=== PATIENT | male | born 1985 | race Two or more races ===

== ENCOUNTER 2018-05-09 20:33 | Emergency (ER) | payer OTHER ==
[~2018-05-09] VITALS: Ht 188 cm; Wt 93.0 kg
[2018-05-09 20:45] VITALS: BP 130/66
[2018-05-09] MEDS ORDERED: ACYCLOVIR400 MG ORAL (20:45)
--- NOTE | 2018-05-09 21:00 | NUR ---
ED Nurse Note: pt walked into ed c/o intermitten blurry vision and dryness. pt states he had viral meningitis about three wks ago and took acyclovir but stopped taking and didn't finish the medication regimen because he was feeling better but blurry vision came back shortly after. Pt AA&ox4, gcs=15, skin warm and dry, denies stiff neck, stone, or fever. evans conjunctiva white no s/s infection noted nor redness, no tears or drainage at this time, will cont monitor.
[2018-05-09] MEDS ORDERED: CILOXAN 0.3% O1 DROP BOTH EYES (21:09)
--- NOTE | 2018-05-09 21:09 | Emergency Room Report ---
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 He was taking her psych severe. Since he finished acyclovir he's been complaining of some blurry vision and double vision. No fever chills but no nausea no vomiting. No discharge. Itching sensation. Denies any other complaint. Allergies: Coded Allergies: SULFAMETHOXAZOLE (Verified Allergy, Unknown, 05/09/18) TRIMETHOPRIM (Verified Allergy, Unknown, 05/09/18) Patient History Past Medical History: see triage record, old chart reviewed Past Surgical History: none Pertinent Family History: none Social History: Denies: smoking Immunizations: other Reviewed Nursing Documentation: PMH: Agreed; PSxH: Agreed Nursing Documentation-PMH Hx Neurological Problems: Yes - viral meningitis Review of Systems Eye: Reports: blurred vision, double vision; Denies: eye pain ENT: Denies: ear pain, nose congestion, throat swelling Respiratory: Denies: cough, shortness of breath Cardiovascular: Denies: chest pain, palpitations Gastrointestinal: Denies: abdominal pain, diarrhea, nausea, vomiting Musculoskeletal: Denies: back pain, joint pain Skin: Denies: rash Neurological: Denies: headache, numbness Endocrine: Denies: increased thirst, increased urine Hematologic/Lymphatic: Denies: easy bruising All Other Systems: negative except mentioned in HPI Physical Exam Vital Signs Date Time Temp Pulse Resp B/P (MAP) Pulse Ox O2 Delivery O2 Flow Rate FiO2 05/09/18 20:40 97.9 105 16 130/66 96 Room Air vitals normal Sp02 EP Interpretation: reviewed, normal General Appearance: well appearing, no apparent distress, alert Head: normocephalic, atraumatic Eyes: bilateral eye PERRL, bilateral eye EOMI, bilateral eye Fundiscopic - Funduscopic exam show sharp disks. No dendritic lesion. No papilledema. ENT: hearing grossly normal, normal pharynx Neck: full range of motion, supple, no meningismus Respiratory: chest non-tender, lungs clear, normal breath sounds Cardiovascular #1: regular rate, rhythm, no murmur Gastrointestinal: normal bowel sounds, non tender, no mass, no organomegaly, no bruit, non-distended Musculoskeletal: back normal, gait/station normal, normal range of motion Psychiatric: mood/affect normal Skin: warm/dry Medical Decision Making Diagnostic Impression: Primary Impression: Blurred vision, bilateral ER Course Patient with blurred vision intermittently. I see no evidence of herpes keratitis. No evidence of meningitis. Visual acuity is normal. We'll discharge home with ophthalmology's last search strategist follow-up for recheck. Return if worse. Last Vital Signs Date Time Temp Pulse Resp B/P (MAP) Pulse Ox O2 Delivery O2 Flow Rate FiO2 05/09/18 20:40 97.9 105 16 130/66 96 Room Air Status: improved Disposition: HOME, SELF-CARE Condition: Stable Scripts Ciprofloxacin (Ciprofloxacin HCl) 2.5 Ml Drops 2 DROP BOTH EYES Q4H, #2 ML Prov: Stevie Sargent MD 05/09/18 Additional Instructions: Follow-up with eye doctor within a week. Return if symptom worsen. Stevie Sargent MD May 09, 2018 21:09
[2018-05-09 21:11] VITALS: BP 130/64
--- NOTE | 2018-05-09 21:11 | NUR ---
ED Nurse Note: pt discharge instruction provided w/ prescription, pt wristband removed, pt education done via discussion and handout, pt advised to follow up with pcp or return to ed if s/s worsen or new s/s develop, pt verbalized understanding and agrees with plan, all belongings left with pt.
== END 2018-05-09 21:11 | disposition home or self-care (01) ==
LOC: EMR 21:10
DX: H53.8 Other visual disturbances (principal); Z86.61 Personal history of infections of the central nervous system; Z88.0 Allergy status to penicillin; Z88.2 Allergy status to sulfonamides
CPT/HCPCS: 99282

== ENCOUNTER 2018-05-12 22:42 | Emergency (ER) | payer OTHER ==
[~2018-05-12] VITALS: Ht 188 cm; Wt 93.0 kg
[~2018-05-12 22:42] MED LIST: ACYCLOVIR400 MG ORAL; CILOXAN 0.3% O1 DROP BOTH EYES
--- NOTE | 2018-05-12 23:04 | NUR ---
ER Nurse Note: Pt came from home c/o abdominal pain and dirrhea for one day. Pt stated he was consitpated for one day and took ducolax supp, and had bloody, painful dirrhea [id number] after. Kylie 9/10 pain. Bowel sounds heard in all quadrants. No BM currently. Pt a&ox4, VSS, no signs of distress. ERMD at pt side; [facility].
[2018-05-12 23:25] VITALS: BP 129/74
[2018-05-12 23:25] LABS: BASOPHILS % (AUTO) 1.1 % (0.0-2.0); EOSINOPHILS % (AUTO) 0.7 % (0.0-3.0); HEMATOCRIT 44.2 % (42.0-52.0); HEMOGLOBIN 15.7 G/DL (14.2-18.0); MEAN CORPUSCULAR VOLUME 89 FL (80-99); MONOCYTES % (AUTO) 6.6 % (1.0-10.0); NEUTROPHILS % (AUTO) 63.6 % (45.0-75.0); PLATELET COUNT 190 K/UL (150-450); RED BLOOD COUNT 4.96 M/UL (4.70-6.10); RED CELL DISTRIBUTION WIDTH 11.1 % (11.6-14.8); WHITE BLOOD COUNT 7.8 K/UL (4.8-10.8)
[2018-05-12 23:37] LABS: ANION GAP 11 mmol/L (5-15); BLOOD UREA NITROGEN 14 mg/dL (7-18); CALCIUM 8.9 MG/DL (8.5-10.1); CARBON DIOXIDE 24 MMOL/L (21-32); CHLORIDE 104 MMOL/L (98-107); CREATININE 1.2 MG/DL (0.55-1.30); POTASSIUM 4.1 MMOL/L (3.5-5.1); SODIUM 139 MMOL/L (136-145)
[2018-05-12 23:41] LABS: ALANINE AMINOTRANSFERASE 42 U/L (12-78); ALBUMIN 4.1 G/DL (3.4-5.0); ALBUMIN/GLOBULIN RATIO 1.3 (1.0-2.7); ALKALINE PHOSPHATASE 95 U/L (46-116); BILIRUBIN,TOTAL 0.4 MG/DL (0.2-1.0)
[2018-05-13 00:15] LABS: ASPARTATE AMINO TRANSFERASE 29 U/L (15-37)
[2018-05-13] MEDS ORDERED: Metoclopramide 10mg/2ml Inj IVP ONE (00:15)
[2018-05-13] MEDS ORDERED: DiphenhydrAMINE 50mg/ml Inj IVP ONE (00:15)
[2018-05-13] MEDS ORDERED: Ketorolac 30mg Inj IV ONE (00:15)
--- NOTE | 2018-05-13 00:26 | Emergency Room Report ---
History of Present Illness General Chief Complaint: Abdominal Pain Source: Patient Present Illness HPI Patient presents with lower abdominal cramping and diarrhea since yesterday reports that he was somewhat constipated and therefore took a suppository After that he has been having persistent diarrhea associated with the cramps denies any fevers or chills denies any chest pain Denies any vomiting he had some mild nausea initially Patient also reports recent hospitalization for viral meningitis On review patient was also at this hospital recently for blurring of vision Denies any recent travel patient also reported blood in his stool Allergies: Coded Allergies: SULFAMETHOXAZOLE (Verified Allergy, Unknown, 05/12/18) TRIMETHOPRIM (Verified Allergy, Unknown, 05/12/18) Patient History Past Medical History: see triage record Pertinent Family History: none Reviewed Nursing Documentation: PMH: Agreed; PSxH: Agreed Nursing Documentation-PMH Hx Neurological Problems: Yes - viral meningitis Review of Systems All Other Systems: negative except mentioned in HPI Physical Exam Vital Signs Date Time Temp Pulse Resp B/P (MAP) Pulse Ox O2 Delivery O2 Flow Rate FiO2 05/12/18 22:46 98.2 75 18 129/74 97 Room Air Sp02 EP Interpretation: reviewed, normal General Appearance: well appearing, no apparent distress Head: normocephalic, atraumatic Eyes: bilateral eye PERRL, bilateral eye EOMI ENT: hearing grossly normal, normal pharynx, TMs + canals normal, uvula midline Neck: full range of motion, supple, no meningismus, no bony tend Respiratory: lungs clear, normal breath sounds, no rhonchi, no respiratory distress, no retraction, no accessory muscle use Cardiovascular #1: normal peripheral pulses, regular rate, rhythm, no edema, no gallop, no JVD, no murmur Gastrointestinal: normal bowel sounds, non tender, soft, no mass, no organomegaly, non-distended, no guarding, no hernia, no pulsatile mass, no rebound Genitourinary: no CVA tenderness Musculoskeletal: normal inspection Neurologic: oriented x3, responsive, dump attendant III-XII nml as tested, motor strength/ tone normal, sensory intact Psychiatric: mood/affect normal Skin: normal color, no rash, warm/dry, palpation normal Lymphatic: normal inspection, no adenopathy Medical Decision Making Diagnostic Impression: Primary Impression: Diarrhea Additional Impression: Abdominal pain ER Course With the history exam and presentation, multiple differentials considered, including but not limited to appendicitis, gastritis, cholecystitis, diverticulitis Patient's discomfort however it appears to be mainly diarrhea abdominal exam is fairly soft and benign and Patient complains minimally of abdominal cramping Blood work is at baseline levels patient has done better throughout his stay my suspicion for appendicitis is low and patient will have initial conservative outpatient trial And return with any changes Labs Test 05/12/18 23:15 White Blood Count 7.8 K/UL (4.8-10.8) Red Blood Count 4.96 M/UL (4.70-6.10) Hemoglobin 15.7 G/DL (14.2-18.0) Hematocrit 44.2 % (42.0-52.0) Mean Corpuscular Volume 89 FL (80-99) Mean Corpuscular Hemoglobin 31.6 PG (27.0-31.0) Mean Corpuscular Hemoglobin Concent 35.5 G/DL (32.0-36.0) Red Cell Distribution Width 11.1 % (11.6-14.8) Platelet Count 190 K/UL (150-450) Mean Platelet Volume 7.9 FL (6.5-10.1) Neutrophils (%) (Auto) 63.6 % (45.0-75.0) Lymphocytes (%) (Auto) 28.0 % (20.0-45.0) Monocytes (%) (Auto) 6.6 % (1.0-10.0) Eosinophils (%) (Auto) 0.7 % (0.0-3.0) Basophils (%) (Auto) 1.1 % (0.0-2.0) Sodium Level 139 MMOL/L (136-145) Potassium Level 4.1 MMOL/L (3.5-5.1) Chloride Level 104 MMOL/L (98-107) Carbon Dioxide Level 24 MMOL/L (21-32) Anion Gap 11 mmol/L (5-15) Blood Urea Nitrogen 14 mg/dL (7-18) Creatinine 1.2 MG/DL (0.55-1.30) Estimat Glomerular Filtration Rate > 60 mL/min (>60) Glucose Level 131 MG/DL (74-106) Calcium Level 8.9 MG/DL (8.5-10.1) Total Bilirubin 0.4 MG/DL (0.2-1.0) Aspartate Amino Transf (AST/SGOT) 29 U/L (15-37) Alanine Aminotransferase (ALT/SGPT) 42 U/L (12-78) Alkaline Phosphatase 95 U/L (46-116) Total Protein 7.2 G/DL (6.4-8.2) Albumin 4.1 G/DL (3.4-5.0) Globulin 3.1 g/dL Albumin/Globulin Ratio 1.3 (1.0-2.7) Lipase 126 U/L (73-393) Last Vital Signs Date Time Temp Pulse Resp B/P (MAP) Pulse Ox O2 Delivery O2 Flow Rate FiO2 05/12/18 23:25 98.2 66 15 129/74 97 Room Air Status: improved Disposition: HOME, SELF-CARE Condition: Improved Scripts Metoclopramide Hcl* (REGLAN*) 10 Mg Tablet 10 MG ORAL BID, #12 TAB Prov: Kofi Moya DO 05/13/18 Referrals: [facility],REFERRING (PCP) Additional Instructions: Patient is provided with the discharge instructions notified to follow up with primary doctor in the next 2-3 days otherwise return to the er with any worsening symptoms. Please note that this report is being documented using Liquid Light technology. This can lead to erroneous entry secondary to incorrect interpretation by the dictating instrument. Kofi Moya DO May 13, 2018 00:26
[2018-05-13 01:10] VITALS: BP 118/76
--- NOTE | 2018-05-13 01:30 | NUR ---
ER Nurse Note: Pt calm, cooperative, no signs of distress. All orders completed per ERMD orders. Pt denies pain, n/v/d after medication received. Awaiting discharge ordrers. All safety measures met; will continue to [facility]ior.
[2018-05-13] MEDS ORDERED: REGLAN10 MG ORAL (02:36)
[2018-05-13 04:00] VITALS: BP 130/78
--- NOTE | 2018-05-13 04:00 | NUR ---
ER Nurse Note: Pt seen, treated, medically cleared for discharge by ERMD. Discharge instructions and prescriptons given with repeat verbalization by pt. Instructed pt to follow up with primary care physican within one week. Pt a&ox4, VSS, no signs of distress. No signs of n/v/d on shfit. ID band removed; IV removed, site clean and bandaged. All safety measures met; left with all belongings with steady gait via own transporation with family member.
== END 2018-05-13 04:00 | disposition home or self-care (01) ==
LOC: EMR 23:03
DX: R10.30 Lower abdominal pain, unspecified (principal); R19.7 Diarrhea, unspecified; Z88.2 Allergy status to sulfonamides
CPT/HCPCS: 36415; 80053; 83690; 85025; 96361; 96374; 96375; 99284; J1200; J1885; J2765

== ENCOUNTER 2019-04-04 14:43 | Emergency (ER) | payer OTHER ==
[~2019-04-04] VITALS: Ht 172.7 cm; Wt 81.6 kg
[~2019-04-04 14:43] MED LIST changes: +REGLAN10 MG ORAL
--- NOTE | 2019-04-04 14:43 | NUR ---
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 Patient c/o vomiting x 4. Patient awake, alert, oriented x 4. Regular, unlabored breathing noted. Patient appears anxious. No hive or rash noted. Placed patient on monitoring coordinator.
[2019-04-04 14:50] VITALS: BP 137/86
[2019-04-04] MEDS ORDERED: DiphenhydrAMINE 50mg/ml Inj ONE (14:50)
[2019-04-04] MEDS ORDERED: Solu-MEDROL 125mg Inj ONE (14:50)
[2019-04-04] MEDS ORDERED: DiphenhydrAMINE 50mg/ml Inj IVP ONE (15:00)
[2019-04-04] MEDS ORDERED: Solu-MEDROL 125mg Inj IVP ONE (15:00)
[2019-04-04] MEDS: Ketorolac 30mg Inj IV ONE ×2 (15:05→15:19)
[2019-04-04 15:44] LABS: BASOPHILS % (AUTO) 0.3 % (0.0-2.0); EOSINOPHILS % (AUTO) 0.4 % (0.0-3.0); HEMATOCRIT 53.1 % (42.0-52.0); LYMPHOCYTES % (AUTO) 16.2 % (20.0-45.0); MEAN CORPUSCULAR VOLUME 87 FL (80-99); MONOCYTES % (AUTO) 4.8 % (1.0-10.0); NEUTROPHILS % (AUTO) 78.3 % (45.0-75.0); PLATELET COUNT 251 K/UL (150-450); RED CELL DISTRIBUTION WIDTH 10.1 % (11.6-14.8); WHITE BLOOD COUNT 10.7 K/UL (4.8-10.8)
[2019-04-04 15:52] LABS: HEMOGLOBIN 18.5 G/DL (14.2-18.0)
[2019-04-04 15:56] LABS: ANION GAP 14 mmol/L (5-15); BLOOD UREA NITROGEN 19 mg/dL (7-18); CALCIUM 10.1 MG/DL (8.5-10.1); CARBON DIOXIDE 22 MMOL/L (21-32); CHLORIDE 103 MMOL/L (98-107); CREATININE 1.3 MG/DL (0.55-1.30); POTASSIUM 4.1 MMOL/L (3.5-5.1); SODIUM 139 MMOL/L (136-145)
[2019-04-04 16:01] LABS: ALANINE AMINOTRANSFERASE 73 U/L (12-78); ALBUMIN 4.7 G/DL (3.4-5.0); ALBUMIN/GLOBULIN RATIO 1.3 (1.0-2.7); ALKALINE PHOSPHATASE 97 U/L (46-116); ASPARTATE AMINO TRANSFERASE 29 U/L (15-37); BILIRUBIN,TOTAL 0.8 MG/DL (0.2-1.0)
[2019-04-04] MEDS ORDERED: DIPHENHYDRAMINE25 M1 ORAL (16:31)
[2019-04-04] MEDS ORDERED: PREDNISONE20 MG ORAL (16:31)
[2019-04-04] MEDS ORDERED: ONDANSETRON ODT4 MG BC (16:31)
[2019-04-04] MEDS ORDERED: RANITIDINE HCL150 MG ORAL (16:31)
[2019-04-04 16:54] VITALS: BP 132/96
--- NOTE | 2019-04-04 16:55 | NUR ---
ER DISCHARGE NOTE: Patient is cleared to be discharged per ERMD Dr. Nation, pt is aox4, on room air, with stable vital signs. pt was given dc and prescription instructions, pt was able to verbalize understanding, pt id band and iv site removed without complications. pt is able to ambulate with steady gait. pt took all belongings. Advised patient not to drive due to patient recieved IV Benadryl. Patient stated he was going to call his father for a ride.
--- NOTE | 2019-04-04 17:15 | Emergency Room Report ---
History of Present Illness General Chief Complaint: Allergic Reaction Source: Patient Present Illness HPI 33-year-old male presents ED for evaluation. Complaining of abdominal pain and vomiting. Started last night after consuming food containing eggplant. States he has an allergy to eggplant but was not aware. Denies any tongue swelling or throat swelling. Denies shortness of breath. Denies hives. Notes generalized body aches. 9 out of 10, dull, nonradiating. No other aggravating relieving factors. Denies any other associated symptoms Allergies: Coded Allergies: SULFAMETHOXAZOLE (Verified Allergy, Unknown, 05/12/18) TRIMETHOPRIM (Verified Allergy, Unknown, 05/12/18) Patient History Past Medical History: none, psych hx Past Surgical History: none Pertinent Family History: none Social History: Denies: smoking, alcohol use, drug use Immunizations: UTD Reviewed Nursing Documentation: PMH: Agreed; PSxH: Agreed Nursing Documentation-PMH Hx Neurological Problems: Yes - viral meningitis Review of Systems All Other Systems: negative except mentioned in HPI Physical Exam Vital Signs Date Time Temp Pulse Resp B/P (MAP) Pulse Ox O2 Delivery O2 Flow Rate FiO2 04/04/19 14:43 97.5 99 20 134/76 (95) 99 Room Air Sp02 EP Interpretation: reviewed, normal General Appearance: alert, GCS 15, non-toxic, moderate distress Head: normocephalic, atraumatic Eyes: bilateral eye normal inspection, bilateral eye PERRL ENT: hearing grossly normal, normal pharynx, no angioedema, normal voice Neck: full range of motion, supple/symm/no masses Respiratory: chest non-tender, lungs clear, normal breath sounds, speaking full sentences Cardiovascular #1: regular rate, rhythm, no edema Cardiovascular #2: 2+ carotid (R), 2+ carotid (L), 2+ radial (R), 2+ radial (L) , 2+ dorsalis pedis (R), 2+ dorsalis pedis (L) Gastrointestinal: normal bowel sounds, non tender, soft, non-distended, no guarding, no rebound Rectal: deferred Genitourinary: normal inspection, no CVA tenderness Musculoskeletal: back normal, normal range of motion, gait/station normal, non- tender Neurologic: alert, motor strength/tone normal, oriented x3, sensory intact, responsive, speech normal Psychiatric: judgement/insight normal, memory normal, mood/affect normal, no suicidal/homicidal ideation Reflexes: 3+ bicep (R), 3+ bicep (L), 3+ tricep (R), 3+ tricep (L), 3+ knee (R) , 3+ knee (L) Skin: no rash Lymphatic: no adenopathy Medical Decision Making Diagnostic Impression: Primary Impression: Allergic reaction Qualified Codes: T78.40XA - Allergy, unspecified, initial encounter ER Course Hospital Course 33 yo M presents with vomiting, generalized pain after eating eggplant. known allergy to eggplant Differential diagnoses include: allergic reaction, angioedema, gastritis Clinical course Patient placed on stretcher. nurse monitoring. After initial history and physical, I ordered Solu-Medrol, Benadryl, zofran, toradol, Zantac, IV fluids Labs reviewed - electrolytes okay, no leukocytosis, Upon reassessment patient states he feels better. discussed findings with patient. Patient observed on monitor. Safe for discharge for close outpatient follow-up. States he has a PMD i. I feel this is a highly complex case requiring extensive working including EKG/Rhythm strip, Xray/CT/US, Blood/urine lab work, repeat exams while in ED, and administration of strong opiates/narcotics for pain control, admission to hospital or close patient follow up. Diagnosis - allergic reaction Stable and discharged to home with prescriptions for Zantac, zofran, prednisone , Benadryl. Followup with PMD. Return to ED if symptoms recur or worsen Labs Test 04/04/19 14:55 White Blood Count 10.7 K/UL (4.8-10.8) Red Blood Count 6.10 M/UL (4.70-6.10) Hemoglobin 18.5 G/DL (14.2-18.0) Hematocrit 53.1 % (42.0-52.0) Mean Corpuscular Volume 87 FL (80-99) Mean Corpuscular Hemoglobin 30.4 PG (27.0-31.0) Mean Corpuscular Hemoglobin Concent 34.9 G/DL (32.0-36.0) Red Cell Distribution Width 10.1 % (11.6-14.8) Platelet Count 251 K/UL (150-450) Mean Platelet Volume 6.9 FL (6.5-10.1) Neutrophils (%) (Auto) 78.3 % (45.0-75.0) Lymphocytes (%) (Auto) 16.2 % (20.0-45.0) Monocytes (%) (Auto) 4.8 % (1.0-10.0) Eosinophils (%) (Auto) 0.4 % (0.0-3.0) Basophils (%) (Auto) 0.3 % (0.0-2.0) Sodium Level 139 MMOL/L (136-145) Potassium Level 4.1 MMOL/L (3.5-5.1) Chloride Level 103 MMOL/L (98-107) Carbon Dioxide Level 22 MMOL/L (21-32) Anion Gap 14 mmol/L (5-15) Blood Urea Nitrogen 19 mg/dL (7-18) Creatinine 1.3 MG/DL (0.55-1.30) Estimat Glomerular Filtration Rate > 60 mL/min (>60) Glucose Level 113 MG/DL (74-106) Calcium Level 10.1 MG/DL (8.5-10.1) Total Bilirubin 0.8 MG/DL (0.2-1.0) Aspartate Amino Transf (AST/SGOT) 29 U/L (15-37) Alanine Aminotransferase (ALT/SGPT) 73 U/L (12-78) Alkaline Phosphatase 97 U/L (46-116) Total Protein 8.3 G/DL (6.4-8.2) Albumin 4.7 G/DL (3.4-5.0) Globulin 3.6 g/dL Albumin/Globulin Ratio 1.3 (1.0-2.7) Lipase 134 U/L (73-393) Last Vital Signs Date Time Temp Pulse Resp B/P (MAP) Pulse Ox O2 Delivery O2 Flow Rate FiO2 04/04/19 16:54 98.3 86 18 132/96 98 Room Air Status: improved Disposition: HOME, SELF-CARE Condition: Stable Scripts Prednisone* (PREDNISONE*) 20 Mg Tablet 40 MG ORAL DAILY for 5 Days, #10 TAB Prov: Faheem Nation MD 04/04/19 Diphenhydramine Hcl* (DIPHENHYDRAMINE HCL*) 25 Mg Capsule 25 MG ORAL Q6H PRN for Itching for 5 Days, #30 CAP 0 Refills Prov: Faheem Nation MD 04/04/19 Ondansetron Odt* (ZOFRAN ODT*) 4 Mg Tab.rapdis 4 MG BC EVERY 6 HOURS PRN for Nausea & Vomiting, #20 TAB 0 Refills Prov: Faheem Nation MD 04/04/19 Ranitidine Hcl* (ZANTAC*) 150 Mg Tablet 150 MG ORAL TWICE A DAY, #30 TAB Prov: Faheem Nation MD 04/04/19 Referrals: NON PHYSICIAN (PCP) Patient Instructions: Food Allergy, [id number] Faheem Nation MD Apr 04, 2019 17:15
== END 2019-04-04 16:54 | disposition home or self-care (01) ==
LOC: EMR 15:03
DX: T78.40XA Allergy, unspecified, initial encounter (principal); X58.XXXA Exposure to other specified factors, initial encounter; Y92.9 Unspecified place or not applicable; Z88.2 Allergy status to sulfonamides; Z88.8 Allergy status to other drugs, medicaments and biological substances; Z91.018 Allergy to other foods; Z86.61 Personal history of infections of the central nervous system
CPT/HCPCS: 36415; 80053; 83690; 85025; 96361; 96374; 96375; J1200; J2405; J2930; J7030; S0028; Z7502; 99284

== ENCOUNTER 2019-04-05 02:28 | Emergency (ER) | payer OTHER ==
[~2019-04-05] VITALS: Ht 188 cm; Wt 94.8 kg
[~2019-04-05 02:28] MED LIST changes: +DIPHENHYDRAMINE25 M1 ORAL; +ONDANSETRON ODT4 MG BC; +PREDNISONE20 MG ORAL; +RANITIDINE HCL150 MG ORAL
[2019-04-05 02:36] VITALS: BP 130/70
--- NOTE | 2019-04-05 02:36 | NUR ---
ED Nurse Note: Patient walked in to ER c/o lower abdominal pain, nausea and feeling of throwing up since last night after eating dinner. Patient was seen here yesterday 04/04/19 due to same symptoms. As per patient, he took all the medications that was prescribed to him. No episodes of vomiting at this time. Afebrile. Not in any distress. VSS.
--- NOTE | 2019-04-05 02:40 | NUR ---
ED Nurse Note: ERMD at bedside.
--- NOTE | 2019-04-05 03:19 | Emergency Room Report ---
History of Present Illness General Chief Complaint: Nausea Source: Patient Present Illness HPI 33-year-old male presents to emergency room with nausea. Patient reports that he was seen earlier in the emergency room for allergic reaction was given multiple medications. He reported taking all of those medications at 1 time 1 hour prior to arrival. He had the sensation of vomiting but was unable to. Of note patient vomited 4 times earlier while he was having his allergic reaction to eggplant. Patient's only complaint at this time is persistent nausea and vomiting abdominal. Patient denies any diarrhea, vomiting, constipation, rash, difficulty breathing, throat or tongue swelling. Allergies: Coded Allergies: SULFAMETHOXAZOLE (Verified Allergy, Unknown, 05/12/18) TRIMETHOPRIM (Verified Allergy, Unknown, 05/12/18) Nursing Documentation-[facility] Past Medical History: No History, Except For Hx Cardiac Problems: No Hx Hypertension: No Hx Pacemaker: No Hx Asthma: No Hx COPD: No Hx Diabetes: No Hx Dialysis: No History Of Psychiatric Problem: No Hx Neurological Problems: Yes - viral meningitis Hx Cerebrovascular Accident: No Hx Seizures: No Review of Systems Constitutional: Denies: chills, fever Respiratory: Denies: cough, shortness of breath Cardiovascular: Denies: chest pain, palpitations Gastrointestinal: Denies: diarrhea, vomiting Genitourinary: Denies: hematuria, pain Musculoskeletal: Denies: joint swelling Skin: Denies: rash, lesions Neurological: Denies: headache, dizziness Physical Exam Vital Signs Date Time Temp Pulse Resp B/P (MAP) Pulse Ox O2 Delivery O2 Flow Rate FiO2 04/05/19 02:30 98.1 83 19 130/70 (90) 99 Room Air Sp02 EP Interpretation: reviewed General Appearance: well appearing, no apparent distress, non-toxic Head: normocephalic, atraumatic Eyes: bilateral eye normal inspection ENT: hearing grossly normal, EOM grossly intact, moist mucus membranes Neck: supple Respiratory: lungs clear, normal breath sounds, no respiratory distress, speaking full sentences Cardiovascular #1: regular rate, rhythm, normal capillary refill Cardiovascular #2: 2+ radial (R), 2+ radial (L) Gastrointestinal: soft, non-distended Rectal: deferred Musculoskeletal: moves extm spontaneously, no lower extremity edema Neurologic: grossly normal Psychiatric: mood/affect normal Skin: warm/dry, normal turgor Medical Decision Making Diagnostic Impression: Primary Impression: Nausea in adult patient ER Course 33-year-old male presents with nausea. Status post allergic reaction and taking multiple medications. Patient denies any respiratory complaints. No signs of distress. Patient has already taken Zofran. We will continue to observe and p.o. challenge with oral fluids Reevaluation Time: 05:03 Last Vital Signs Date Time Temp Pulse Resp B/P (MAP) Pulse Ox O2 Delivery O2 Flow Rate FiO2 04/05/19 02:36 98.1 83 19 130/70 99 Room Air Status: improved Reevaluation Impression Patient observed in the emergency room for 2 hours. No signs of vomiting. Patient's nausea improved with oral liquids. Patient discharged with follow-up with primary care doctor. Recommended to take medications one at a time and with food. Disposition: HOME, SELF-CARE Condition: Stable Patient Instructions: Nausea, Adult Additional Instructions: Please follow-up with your primary care doctor in 2 to 3 days for reevaluation. Please follow instructions on prior discharge paperwork. Bertrand Gomes M.D. Apr 05, 2019 03:18
[2019-04-05 05:17] VITALS: BP 128/69
--- NOTE | 2019-04-05 05:17 | NUR ---
ED Nurse Note: Pt cleared by ERMD for discharge. DC instructions was given and explained to pt and verbalized understanding of teachings. All medical deviecs such as ID band removed. Pt is AAO x4, ambulatory and left with all personal belongings.
== END 2019-04-05 05:15 | disposition home or self-care (01) ==
LOC: EMR 03:00
DX: R11.0 Nausea (principal); Z88.2 Allergy status to sulfonamides; Z88.1 Allergy status to other antibiotic agents
CPT/HCPCS: 99282

== ENCOUNTER 2019-04-24 00:04 | Emergency (ER) | payer OTHER ==
[~2019-04-24] VITALS: Ht 188 cm; Wt 95.3 kg
[~2019-04-24 00:04] MED LIST changes: +TAMIFLU75 MG ORAL
[2019-04-24 02:50] VITALS: BP 128/77
[2019-04-24] MEDS ORDERED: Ketorolac 30mg Inj IV ONE ×2 (03:00→04:45)
[2019-04-24 03:09] LABS: BASOPHILS % (AUTO) 0.8 % (0.0-2.0); EOSINOPHILS % (AUTO) 1.4 % (0.0-3.0); HEMATOCRIT 43.7 % (42.0-52.0); HEMOGLOBIN 15.5 G/DL (14.2-18.0); MEAN CORPUSCULAR VOLUME 89 FL (80-99); MONOCYTES % (AUTO) 7.3 % (1.0-10.0); NEUTROPHILS % (AUTO) 55.5 % (45.0-75.0); PLATELET COUNT 189 K/UL (150-450); RED BLOOD COUNT 4.93 M/UL (4.70-6.10); RED CELL DISTRIBUTION WIDTH 10.6 % (11.6-14.8); WHITE BLOOD COUNT 6.7 K/UL (4.8-10.8)
[2019-04-24 03:17] LABS: ANION GAP 10 mmol/L (5-15); BLOOD UREA NITROGEN 15 mg/dL (7-18); CALCIUM 9.1 MG/DL (8.5-10.1); CARBON DIOXIDE 26 MMOL/L (21-32); CHLORIDE 106 MMOL/L (98-107); CREATININE 1.1 MG/DL (0.55-1.30); POTASSIUM 4.2 MMOL/L (3.5-5.1); SODIUM 142 MMOL/L (136-145)
[2019-04-24] MEDS ORDERED: IBUPROFEN600 MG ORAL (04:46)
--- NOTE | 2019-04-24 04:47 | Emergency Room Report ---
History of Present Illness General Chief Complaint: Headache Source: Patient Present Illness HPI Is a 33-year-old male with a history of meningitis last year where he had to be admitted to the hospital. He presents with headache. He was here 4 days ago. Was diagnosed with flulike illness. He was discharged with Tamiflu. He had symptoms still so he went to [facility] the next day. They did a rapid influenza test was negative. Chest x-ray was negative. He was told he has a viral illness and discharged home. 2 days ago he started having some headache and back pain. He said this feels similar to his previous meningitis. He has no nausea no vomiting. Has slight cough. Has no fever chills. Worse with movement. Better with rest. Denies any other complaint. No focal deficit. No slurred speech. Allergies: Coded Allergies: SULFAMETHOXAZOLE (Verified Allergy, Unknown, 05/12/18) TRIMETHOPRIM (Verified Allergy, Unknown, 05/12/18) Patient History Past Medical History: see triage record, old chart reviewed Past Surgical History: none Pertinent Family History: none Social History: Denies: smoking Immunizations: other Reviewed Nursing Documentation: PMH: Agreed; PSxH: Agreed Nursing Documentation-PMH Past Medical History: No History, Except For Hx Cardiac Problems: No Hx Hypertension: No Hx Pacemaker: No Hx Asthma: No Hx COPD: No Hx Diabetes: No Hx Dialysis: No Hx Neurological Problems: Yes - viral meningitis Hx Cerebrovascular Accident: No Hx Seizures: No Review of Systems Eye: Denies: eye pain, blurred vision ENT: Denies: ear pain, nose congestion, throat swelling Respiratory: Reports: cough; Denies: shortness of breath Cardiovascular: Denies: chest pain, palpitations Gastrointestinal: Denies: abdominal pain, diarrhea, nausea, vomiting Musculoskeletal: Reports: back pain; Denies: joint pain Skin: Denies: rash Neurological: Reports: headache; Denies: numbness Endocrine: Denies: increased thirst, increased urine Hematologic/Lymphatic: Denies: easy bruising All Other Systems: negative except mentioned in HPI Physical Exam Vital Signs Date Time Temp Pulse Resp B/P (MAP) Pulse Ox O2 Delivery O2 Flow Rate FiO2 04/24/19 01:07 98.2 80 22 128/77 (94) 96 Room Air Vitals normal Sp02 EP Interpretation: reviewed, normal General Appearance: well appearing, no apparent distress, alert Head: normocephalic, atraumatic Eyes: bilateral eye PERRL, bilateral eye EOMI ENT: hearing grossly normal, normal pharynx Neck: full range of motion, supple, no meningismus Respiratory: chest non-tender, lungs clear, normal breath sounds Cardiovascular #1: regular rate, rhythm, no murmur Gastrointestinal: normal bowel sounds, non tender, no mass, no organomegaly, no bruit, non-distended Musculoskeletal: back normal, normal range of motion, gait/station normal Psychiatric: anxious Procedures Lumbar Puncture Consent: Verbal Location: L4-L5 Anesthesia: 1% Lidocaine Volume Anesthetic (ccs): 10 Prep: bedadine Needle Size: 3 1/2 Post-Procedure: recumbent position Attempts: Other Complications: none Patient Tolerated: Well Medical Decision Making Diagnostic Impression: Primary Impression: Headache Qualified Codes: R51 - Headache ER Course Presents with flulike illness and headache. Is unremarkable. I suspect that this is a Viral in nature. He has no meningismus. Neck is supple. Patient still white a lumbar puncture. I attempted a lumbar puncture but I did not get any CSF fluid to send. I see a drop of fluid at the base of the spinal needle but nothing came out. When I try to readjust it to get more, there was just blood. Patient did not want to continue with the attempt. I have low suspicion for bacterial meningitis. He is moving his neck well. Labs unremarkable. I suspect that most he has a viral meningitis. This will be just symptomatic treatment. Will discharge home. Last Vital Signs Date Time Temp Pulse Resp B/P (MAP) Pulse Ox O2 Delivery O2 Flow Rate FiO2 04/24/19 02:50 98.2 80 22 128/77 96 Room Air Status: improved Disposition: HOME, SELF-CARE Condition: Stable Scripts Ibuprofen* (MOTRIN*) 600 Mg Tablet 600 MG ORAL THREE TIMES A DAY, #30 TAB 0 Refills Prov: Stevie Sargent MD 04/24/19 Referrals: [facility],REFERRING (PCP) Patient Instructions: General Headache Without Cause Additional Instructions: Increase fluids. Follow-up with your doctor in 2 to 3 days for recheck. Return if symptoms worsen. Stevie Sargent MD Apr 24, 2019 04:47
[2019-04-24 05:00] VITALS: BP 127/80
== END 2019-04-24 05:00 | disposition home or self-care (01) ==
LOC: EMR 03:15
DX: R51 Headache (principal); M54.9 Dorsalgia, unspecified; Z88.2 Allergy status to sulfonamides; Z88.8 Allergy status to other drugs, medicaments and biological substances; Z86.61 Personal history of infections of the central nervous system
CPT/HCPCS: 36415; 80048; 85025; 85651; 86140; 96361; 96374; 96376; J1885; J7030; Z7502; 99284